=== PATIENT | female | born 1960 | race Caucasian/White ===

== ENCOUNTER → 2017-01-07 | Outpatient (CLI) | payer MEDICAID ==
[~2017-01-07] MED LIST: B/P MED; SYMBICORT INH; ZOFRAN ODT4 MG/UDTAB PO
--- NOTE | ~2017-01-07 | PFT ---
[id number] [facility] [address] [place], [place] [address] [id number] O MR#: [id number] NAME: PUSHPA SOUSA ROOM: SEX: F STUDY DATE/TIME: 01/25/2017 : 1960 AGE: 56 STUDY DESCRIPTION: Attending Physician: Noelle Rosado A.P.R.N. Referring Physician: Noelle Rosado A.P.R.N. Primary Care Physician: Maxim Lynn M.D. PULMONARY DIAGNOSTIC REPORT EXAM Pulmonary Function Study FINDINGS The patient meets ATS criteria for acceptability and repeatability. Please see the scanned sheet for flow volume loops and lung volume values. Spirometry is normal. There is no bronchodilator response. Lung volumes are normal. Diffusion capacity is normal. 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 Dictated by... Lucrecia Pisano TD: 01/25/2017 18:52 JOB #: [id number] PULMONARY DIAGNOSTIC REPORT Page 1 of 1
== END | disposition home or self-care (01) ==
LOC: CRC 07:19
DX: R06.02 Shortness of breath (principal); R05 Cough
CPT/HCPCS: 94060; 94726; 94729